=== PATIENT | male | born 1970 | race Caucasian/White ===

== ENCOUNTER 2017-08-23 17:30 | Emergency (ER) | payer SELFPAY ==
[~2017-08-23] VITALS: Ht 182.9 cm; Wt 111.4 kg
[2017-08-23 18:45] LABS: BASOPHILS % (AUTO) 1 % (0-1); EOSINOPHILS # (AUTO) 0.37 x10^3/uL (0-0.4); EOSINOPHILS % (AUTO) 2 % (1-7); LYMPHOCYTES % (AUTO) 15 % (22-44); MD NO; MEAN CORPUSCULAR HGB CONC 33.7 g/dL (33.2-36.2); MEAN PLATELET VOLUME 6.4 fL (7.4-10.4); MONOCYTES # (AUTO) 0.67 x10^3/uL (0.2-0.8); MONOCYTES % (AUTO) 4 % (2-9); NEUTROPHILS # (AUTO) 11.77 x10^3/uL (1.8-6.8); NEUTROPHILS % (AUTO) 78 % (42-75); PLATELET COUNT 404 x10^3/uL (130-400); RED BLOOD COUNT 3.49 x10^6/uL (4.38-5.82); RED CELL DISTRIBUTION WIDTH 15.3 % (9.4-14.8)
[2017-08-23 18:56] LABS: ALANINE AMINOTRANSFERASE 83 U/L (12-78); ALBUMIN 2.9 g/dL (3.4-5.0); ANION GAP 11 mmol/L (5-15); CALCIUM 9.1 mg/dL (8.5-10.1); CHLORIDE 103 mmol/L (98-107); CREATININE 2.35 mg/dL (0.7-1.3)
[2017-08-23 18:58] LABS: ALKALINE PHOSPHATASE 190 U/L (45-117); BILIRUBIN,TOTAL 1.1 mg/dL (0.2-1.0); TOTAL PROTEIN 8.2 g/dL (6.4-8.2)
[2017-08-23] MEDS ORDERED: VANCOMYCIN PER PHARMACY MC PRN (21:00)
[2017-08-23] MEDS ORDERED: VANCOMYCIN 2,000 MG in SODIUM CHLORIDE 0.9% 500 ML IV ONE (21:00)
[2017-08-23 23:57] VITALS: BP 157/104
== END 2017-08-24 00:14 | disposition home or self-care (01) ==
LOC: ED 21:42
DX: L03.114 Cellulitis of left upper limb (principal); Z72.9 Problem related to lifestyle, unspecified; F15.20 Other stimulant dependence, uncomplicated; I10 Essential (primary) hypertension; L02.414 Cutaneous abscess of left upper limb
CPT/HCPCS: 36415; 80053; 85025; 96365; 96366; 99285; J3370; J7040

== ENCOUNTER 2018-04-09 16:26 | Inpatient (IN) | payer MEDICAID ==
[~2018-04-09] VITALS: Ht 182.9 cm; Wt 99.3 kg
[~2018-04-09 16:26] MED LIST: ASPI-515 PO; ATOR40TA78 PO; CARV3.1212 PO; LEVO100T PO; LISI-170 PO
[2018-04-09] MEDS ORDERED: SODIUM CHLORIDE FLUSH 10ML SYR IVF ONE (17:30)
[2018-04-09] MEDS ORDERED: ASPIRIN 81 MG TABLET CHEW PO ONE (17:30)
[2018-04-09 18:15] LABS: BASOPHILS # (AUTO) 0.05 x10^3/uL (0-0.1); BASOPHILS % (AUTO) 1 % (0-1); EOSINOPHILS # (AUTO) 0.05 x10^3/uL (0-0.4); EOSINOPHILS % (AUTO) 1 % (1-7); LYMPHOCYTES # (AUTO) 1.23 x10^3/uL (1-3.4); LYMPHOCYTES % (AUTO) 25 % (22-44); MD NO; MEAN CORPUSCULAR HEMOGLOBIN 32.3 pg (27.5-34.5); MEAN CORPUSCULAR HGB CONC 33.7 g/dL (33.2-36.2); MEAN CORPUSCULAR VOLUME 95.9 fL (81-97); MEAN PLATELET VOLUME 9.4 fL (7.4-10.4); MONOCYTES # (AUTO) 0.26 x10^3/uL (0.2-0.8); MONOCYTES % (AUTO) 5 % (2-9); NEUTROPHILS # (AUTO) 3.38 x10^3/uL (1.8-6.8); NEUTROPHILS % (AUTO) 68 % (42-75); PLATELET COUNT 212 x10^3/uL (130-400); RED BLOOD COUNT 3.62 x10^6/uL (4.38-5.82); RED CELL DISTRIBUTION WIDTH 15.5 % (9.4-14.8)
[2018-04-09 18:23] LABS: ALANINE AMINOTRANSFERASE 89 U/L (12-78); ALBUMIN 4.1 g/dL (3.4-5.0); ANION GAP 9 mmol/L (5-15); CALCIUM 8.8 mg/dL (8.5-10.1); CHLORIDE 105 mmol/L (98-107); CREATININE 1.72 mg/dL (0.7-1.3)
[2018-04-09 18:27] LABS: ALKALINE PHOSPHATASE 82 U/L (45-117); BILIRUBIN,TOTAL 0.5 mg/dL (0.2-1.0); TOTAL PROTEIN 7.6 g/dL (6.4-8.2); TROPONIN I 0.018 ng/mL (0.000-0.045)
[2018-04-09] MEDS ORDERED: ASPIRIN 81 MG TABLET CHEW ONE (18:29)
[2018-04-09] MEDS ORDERED: FUROSEMIDE 40 MG/4 ML ONE (19:59)
[2018-04-09] MEDS ORDERED: FUROSEMIDE 20 MG/2 ML IV ONE (20:00)
[2018-04-09] MEDS ORDERED: POLYETHYLENE GLYCOL 17 GM PACKET PO PRN (20:30)
[2018-04-09] MEDS: FUROSEMIDE 40 MG/4 ML IV SCH (20:30)
[2018-04-09] MEDS ORDERED: morphine SULFATE 10 MG/ML, 1ML IVPush PRN (20:30)
[2018-04-09] MEDS ORDERED: DOCUSATE 100 MG CAPSULE PO PRN (20:30)
[2018-04-09] MEDS ORDERED: LEVOTHYROXINE 100 MCG INJ IVPush ONE (20:30)
[2018-04-09] MEDS ORDERED: ONDANSETRON 2MG/ML, 2ML IVPush PRN (20:30)
[2018-04-09] MEDS ORDERED: ACETAMINOPHEN 325 MG TABLET PO PRN (20:30)
[2018-04-09] MEDS ORDERED: HYDROcodone/APAP 5/325 TABLET PO PRN (20:30)
[2018-04-09 20:43] LABS: FREE T4 (FREE THYROXINE) 0.23 ng/dL (0.76-1.46)
[2018-04-09] MEDS: CARVEDILOL 3.125 MG TABLET PO SCH (22:00)
[2018-04-09] MEDS: HEPARIN 5,000 UNITS/ML, 1ML SQ SCH (22:01)
[2018-04-09] MEDS: ATORVASTATIN 40 MG TABLET PO SCH (22:01)
[2018-04-09] MEDS: NICOTINE 7 MG/24 HR PATCH.TD24 TD SCH (22:01)
[2018-04-09] MEDS: SODIUM CHLORIDE FLUSH 10ML SYR IVF SCH (22:02)
[2018-04-09 22:22] VITALS: BP 131/87
[2018-04-10 02:29] VITALS: BP 129/91
[2018-04-10] MEDS: LEVOTHYROXINE 100 MCG TABLET PO SCH (05:33)
[2018-04-10] MEDS: HEPARIN 5,000 UNITS/ML, 1ML SQ SCH ×3 (05:33→21:33)
[2018-04-10] MEDS: ASPIRIN 81 MG TABLET EC PO SCH (05:34)
[2018-04-10] MEDS: CARVEDILOL 3.125 MG TABLET PO SCH ×2 (05:34→16:50)
[2018-04-10 05:42] VITALS: BP 126/87
[2018-04-10 05:46] LABS: CHLORIDE 105 mmol/L (98-107)
[2018-04-10 05:53] LABS: ANION GAP 7 mmol/L (5-15); CALCIUM 9.1 mg/dL (8.5-10.1); CREATININE 1.51 mg/dL (0.7-1.3)
[2018-04-10] MEDS: SENNA/DOCUSATE TABLET PO SCH (07:34)
[2018-04-10] MEDS: FUROSEMIDE 40 MG/4 ML IV SCH ×2 (07:34→16:50)
[2018-04-10] MEDS: LIOTHYRONINE 5 MCG TABLET PO SCH (07:35)
[2018-04-10] MEDS: SODIUM CHLORIDE FLUSH 10ML SYR IVF SCH ×2 (07:35→20:46)
[2018-04-10] MEDS: LISINOPRIL 20 MG TABLET PO SCH (07:35)
[2018-04-10 07:59] VITALS: BP 126/85
[2018-04-10] MEDS ORDERED: LEVOTHYROXINE 100 MCG TABLET PO SCH (09:00)
[2018-04-10 13:30] VITALS: BP 106/69
[2018-04-10 20:38] VITALS: BP 98/61
[2018-04-10] MEDS: NICOTINE 7 MG/24 HR PATCH.TD24 TD SCH (20:45)
[2018-04-10] MEDS: ATORVASTATIN 40 MG TABLET PO SCH (20:46)
[2018-04-11 00:54] VITALS: BP 111/68
[2018-04-11 05:08] LABS: ANION GAP 9 mmol/L (5-15); CALCIUM 9.4 mg/dL (8.5-10.1); CHLORIDE 101 mmol/L (98-107); CREATININE 1.76 mg/dL (0.7-1.3)
[2018-04-11] MEDS: ASPIRIN 81 MG TABLET EC PO SCH (05:30)
[2018-04-11] MEDS: CARVEDILOL 3.125 MG TABLET PO SCH ×2 (05:30→17:18)
[2018-04-11] MEDS: LEVOTHYROXINE 100 MCG TABLET PO SCH (05:30)
[2018-04-11] MEDS: HEPARIN 5,000 UNITS/ML, 1ML SQ SCH ×3 (05:31→22:32)
[2018-04-11 05:35] VITALS: BP 107/71
[2018-04-11 07:39] VITALS: BP 116/76
[2018-04-11] MEDS: LISINOPRIL 20 MG TABLET PO SCH (08:39)
[2018-04-11] MEDS: FUROSEMIDE 40 MG TABLET PO SCH (08:40)
[2018-04-11] MEDS: SENNA/DOCUSATE TABLET PO SCH (08:40)
[2018-04-11] MEDS: LIOTHYRONINE 5 MCG TABLET PO SCH (08:41)
[2018-04-11] MEDS: SODIUM CHLORIDE FLUSH 10ML SYR IVF SCH ×2 (08:42→20:04)
[2018-04-11 13:02] VITALS: BP 114/82
[2018-04-11 20:01] VITALS: BP 104/70
[2018-04-11] MEDS: NICOTINE 7 MG/24 HR PATCH.TD24 TD SCH (20:03)
[2018-04-11] MEDS: ATORVASTATIN 40 MG TABLET PO SCH (20:09)
[2018-04-12 02:17] VITALS: BP 99/67
[2018-04-12] MEDS: ASPIRIN 81 MG TABLET EC PO SCH (05:52)
[2018-04-12] MEDS: LEVOTHYROXINE 100 MCG TABLET PO SCH (05:52)
[2018-04-12] MEDS: HEPARIN 5,000 UNITS/ML, 1ML SQ SCH ×3 (05:53→21:05)
[2018-04-12 05:54] VITALS: BP 117/78
[2018-04-12] MEDS: CARVEDILOL 3.125 MG TABLET PO SCH ×2 (05:55→17:35)
[2018-04-12 06:03] LABS: CHLORIDE 102 mmol/L (98-107)
[2018-04-12 06:13] LABS: ANION GAP 11 mmol/L (5-15); CALCIUM 9.3 mg/dL (8.5-10.1); CREATININE 1.44 mg/dL (0.7-1.3)
[2018-04-12 08:01] VITALS: BP 99/65
[2018-04-12] MEDS: SENNA/DOCUSATE TABLET PO SCH ×2 (09:00→09:24)
[2018-04-12] MEDS: LIOTHYRONINE 5 MCG TABLET PO SCH (09:24)
[2018-04-12] MEDS: FUROSEMIDE 40 MG TABLET PO SCH (09:25)
[2018-04-12] MEDS: LISINOPRIL 20 MG TABLET PO SCH (09:25)
[2018-04-12] MEDS: SODIUM CHLORIDE FLUSH 10ML SYR IVF SCH ×2 (09:25→21:06)
[2018-04-12 13:06] VITALS: BP 117/80
[2018-04-12 17:34] VITALS: BP 114/62
[2018-04-12 19:54] VITALS: BP 98/64
[2018-04-12] MEDS: NICOTINE 7 MG/24 HR PATCH.TD24 TD SCH (20:30)
[2018-04-12] MEDS: ATORVASTATIN 40 MG TABLET PO SCH (21:05)
[2018-04-13 01:17] VITALS: BP 143/67
[2018-04-13 05:43] LABS: CHLORIDE 99 mmol/L (98-107)
[2018-04-13] MEDS ORDERED: LEVOTHYROXINE 100 MCG INJ IVPush SCH ×2 (06:00→09:00)
[2018-04-13] MEDS: CARVEDILOL 3.125 MG TABLET PO SCH (06:13)
[2018-04-13] MEDS: ASPIRIN 81 MG TABLET EC PO SCH (06:13)
[2018-04-13] MEDS: HEPARIN 5,000 UNITS/ML, 1ML SQ SCH ×2 (06:14→14:00)
[2018-04-13 06:17] LABS: ANION GAP 5 mmol/L (5-15); CALCIUM 9.4 mg/dL (8.5-10.1); CREATININE 1.41 mg/dL (0.7-1.3)
[2018-04-13 07:27] VITALS: BP 107/66
[2018-04-13] MEDS: SODIUM CHLORIDE FLUSH 10ML SYR IVF SCH (08:08)
[2018-04-13] MEDS: LISINOPRIL 20 MG TABLET PO SCH (08:09)
[2018-04-13] MEDS: FUROSEMIDE 40 MG TABLET PO SCH (08:09)
[2018-04-13] MEDS: LIOTHYRONINE 5 MCG TABLET PO SCH (08:10)
[2018-04-13] MEDS: SENNA/DOCUSATE TABLET PO SCH (08:10)
[2018-04-13] MEDS ORDERED: LEVO100T PO (09:51)
[2018-04-13] MEDS ORDERED: ATOR40TA78 PO (09:51)
[2018-04-13] MEDS ORDERED: CARV3.1212 PO (09:51)
[2018-04-13] MEDS ORDERED: LISI-170 PO (09:51)
[2018-04-13] MEDS ORDERED: ASPI-515 PO (09:51)
[2018-04-13] MEDS ORDERED: SPIR25TA PO (12:48)
[2018-04-13] MEDS ORDERED: FURO-93 PO (12:48)
[2018-04-13 13:49] VITALS: BP 108/72
== END 2018-04-13 16:45 | disposition home or self-care (01) | DRG 682 ==
LOC: ED 18:28 → SUATTDRO 19:43 → EDIP 19:44 → 5SO 20:45
PROVIDERS: ADMIT Family Medicine; ATTEND Internal Medicine
DX: N17.0 Acute kidney failure with tubular necrosis (principal); I50.23 Acute on chronic systolic (congestive) heart failure; J96.01 Acute respiratory failure with hypoxia; I13.0 Hypertensive heart and chronic kidney disease with heart failure and stage 1 through stage 4 chronic kidney disease, or unspecified chronic kidney disease; I31.3 Pericardial effusion (noninflammatory); I42.9 Cardiomyopathy, unspecified; E03.4 Atrophy of thyroid (acquired); E78.5 Hyperlipidemia, unspecified; F17.210 Nicotine dependence, cigarettes, uncomplicated; G47.33 Obstructive sleep apnea (adult) (pediatric); I34.0 Nonrheumatic mitral (valve) insufficiency; N18.9 Chronic kidney disease, unspecified; Z79.899 Other long term (current) drug therapy; Z82.49 Family history of ischemic heart disease and other diseases of the circulatory system; Z91.14 Patient's other noncompliance with medication regimen
CPT/HCPCS: 36415; 71046; 80048; 80053; 82040; 83605; 83735; 83880; 84439; 84443; 84481; 84484; 85025; 87040; 90656; 93005; 93306; 96374; G0378; J1644; J1940

== ENCOUNTER 2018-10-24 11:26 | Inpatient (IN) | payer MEDICAID ==
[~2018-10-24] VITALS: Ht 182.9 cm; Wt 96.9 kg
[~2018-10-24 11:26] MED LIST changes: +FURO-93 PO; +SPIR25TA PO
--- NOTE | 2018-10-24 12:08 | NUR ---
Pt to rm 2 from [facility]
[2018-10-24] MEDS ORDERED: ASPIRIN 81 MG TABLET CHEW ONE (12:15)
--- NOTE | 2018-10-24 12:20 | NUR ---
Pt to ER for 1 mo of chest tightness, dyspnea w/ exertion & inablility to sleep due to orthopnea. EKG done in triage. Cardiac, NIBP & SPO2 monitors placed. Hx CHF w/out access to diuretics x 1mo. Is also supposed to be on oxygen & using CPAP at night but can't due to sleeping in RV.
[2018-10-24] MEDS ORDERED: ASPIRIN 81 MG TABLET CHEW PO ONE ×2 (12:30→14:00)
[2018-10-24] MEDS ORDERED: FUROSEMIDE 40 MG TABLET PO ONE (12:30)
[2018-10-24 13:03] LABS: INTERNATIONAL NORMALIZED RATIO 1.22 (0.93-1.1); PROTHROMBIN TIME 12.7 Seconds (9.6-11.5)
--- NOTE | 2018-10-24 13:14 | NUR ---
IV est using US guided technique by AC Lambert. Several attempts made by this RN & pt needed lab redraw due to first set being clotted. Pt sanjiv. well. Aware of impending admit status.
[2018-10-24 13:20] LABS: BASOPHILS # (AUTO) 0.04 x10^3/uL (0-0.1); BASOPHILS % (AUTO) 0 % (0-1); EOSINOPHILS # (AUTO) 0.02 x10^3/uL (0-0.4); EOSINOPHILS % (AUTO) 0 % (1-7); LYMPHOCYTES # (AUTO) 1.34 x10^3/uL (1-3.4); LYMPHOCYTES % (AUTO) 14 % (22-44); MD NO; MEAN CORPUSCULAR HEMOGLOBIN 32.6 pg (27.5-34.5); MEAN CORPUSCULAR HGB CONC 33.8 g/dL (33.2-36.2); MEAN CORPUSCULAR VOLUME 96.7 fL (81-97); MEAN PLATELET VOLUME 9.1 fL (7.4-10.4); MONOCYTES # (AUTO) 0.79 x10^3/uL (0.2-0.8); MONOCYTES % (AUTO) 8 % (2-9); NEUTROPHILS # (AUTO) 7.27 x10^3/uL (1.8-6.8); NEUTROPHILS % (AUTO) 77 % (42-75); PLATELET COUNT 226 x10^3/uL (130-400); RED BLOOD COUNT 3.43 x10^6/uL (4.38-5.82)
--- NOTE | 2018-10-24 13:23 | NUR ---
RECEIVED BEDSIDE REPORT FROM AC FRAZIER. ASSUMING PT CARE AT THIS TIME.
[2018-10-24 13:31] LABS: ALBUMIN 4.2 g/dL (3.4-5.0); ANION GAP 10 mmol/L (5-15); CALCIUM 8.9 mg/dL (8.5-10.1); CHLORIDE 108 mmol/L (98-107)
--- NOTE | 2018-10-24 13:31 | NUR ---
pt resting on gurney. no acute distress noted. pt states "I DO FEEL A LITTLE BETTER." NO NEEDS REQUESTED AT THIS TIME.
[2018-10-24 13:35] LABS: FREE T4 (FREE THYROXINE) 1.56 ng/dL (0.76-1.46); TROPONIN I 0.082 ng/mL (0.000-0.045)
[2018-10-24] MEDS ORDERED: FUROSEMIDE 40 MG/4 ML ONE (13:54)
[2018-10-24] MEDS ORDERED: FUROSEMIDE 40 MG/4 ML IV ONE (14:00)
[2018-10-24] MEDS ORDERED: ONDANSETRON 2MG/ML, 2ML IVPush PRN (14:30)
[2018-10-24] MEDS ORDERED: ONDANSETRON ODT 4 MG PO PRN (14:30)
[2018-10-24] MEDS ORDERED: ACETAMINOPHEN 325 MG TABLET PO PRN (14:30)
--- NOTE | 2018-10-24 14:39 | NUR ---
PT RESTING ON GURNEY. NO ACUTE DISTRESS NOTED. PT HAS URINAL BEDSIDE. HOSPITALIST BEDSIDE. NO NEEDS REQUESTED AT THIS TIME.
--- NOTE | 2018-10-24 15:14 | NUR ---
PT WITH [facility]. DENIED BY YRN AT [facility] AND [facility]
[2018-10-24 15:16] LABS: TROPONIN I 0.092 ng/mL (0.000-0.045)
--- NOTE | 2018-10-24 15:26 | NUR ---
REPORT TO AC ZAIDI. ALL QUESTIONS ANSWERED
--- NOTE | 2018-10-24 15:49 | NUR ---
PT TRANSFERRED TO FLOOR. PT LEFT WITH ALL PERSONAL BELONGINGS.
[2018-10-24] MEDS: NICOTINE 14MG/24 HR PATCH.TD24 TD SCH (16:16)
[2018-10-24] MEDS: HEPARIN 5,000 UNITS/ML, 1ML SQ SCH (16:16)
[2018-10-24] MEDS ORDERED: LITH300T30 PO (16:46)
[2018-10-24] MEDS ORDERED: VENL75CA6 PO (16:46)
[2018-10-24] MEDS ORDERED: PRAZ2CAP2 PO (16:46)
[2018-10-24] MEDS ORDERED: LEVO150T5 PO (16:46)
[2018-10-24 17:14] VITALS: BP 114/77
[2018-10-24] MEDS ORDERED: ALBUTEROL/IPRATROPIUM 2.5MG/0.5MG, 3 ML ONE (17:30)
[2018-10-24] MEDS ORDERED: ALBUTEROL/IPRATROPIUM 2.5MG/0.5MG, 3 ML NPPB PRN (18:00)
[2018-10-24] MEDS: CARVEDILOL 3.125 MG TABLET PO SCH (18:01)
[2018-10-24 18:54] VITALS: BP 105/72
[2018-10-24 20:32] LABS: TROPONIN I 0.079 ng/mL (0.000-0.045)
[2018-10-24] MEDS: ATORVASTATIN 40 MG TABLET PO SCH (21:39)
[2018-10-24] MEDS: LITHIUM CARBONATE 300 MG TABLET.ER PO SCH (21:39)
[2018-10-24] MEDS: PRAZOSIN 2 MG CAPSULE PO SCH (21:40)
[2018-10-25] VITALS (12 sets, daily range): BP systolic 80–112; BP diastolic 49–77
[2018-10-25] MEDS: HEPARIN 5,000 UNITS/ML, 1ML SQ SCH ×3 (00:57→16:40)
[2018-10-25 02:51] LABS: BASOPHILS # (AUTO) 0.07 x10^3/uL (0-0.1); BASOPHILS % (AUTO) 1 % (0-1); EOSINOPHILS # (AUTO) 0.09 x10^3/uL (0-0.4); EOSINOPHILS % (AUTO) 1 % (1-7); LYMPHOCYTES # (AUTO) 1.46 x10^3/uL (1-3.4); LYMPHOCYTES % (AUTO) 18 % (22-44); MD NO; MEAN CORPUSCULAR HEMOGLOBIN 32.5 pg (27.5-34.5); MEAN CORPUSCULAR HGB CONC 33.5 g/dL (33.2-36.2); MEAN CORPUSCULAR VOLUME 96.9 fL (81-97); MEAN PLATELET VOLUME 8.9 fL (7.4-10.4); MONOCYTES # (AUTO) 0.69 x10^3/uL (0.2-0.8); MONOCYTES % (AUTO) 8 % (2-9); NEUTROPHILS # (AUTO) 6.03 x10^3/uL (1.8-6.8); NEUTROPHILS % (AUTO) 72 % (42-75); PLATELET COUNT 183 x10^3/uL (130-400); RED CELL DISTRIBUTION WIDTH 16.1 % (9.4-14.8)
[2018-10-25 03:04] LABS: % IRON SATURATION 14 % (20-55); ANION GAP 8 mmol/L (5-15); CALCIUM 8.2 mg/dL (8.5-10.1); CHLORIDE 109 mmol/L (98-107); CREATININE 1.37 mg/dL (0.7-1.3); IRON LEVEL 50 mcg/dL (65-175); TOTAL IRON BINDING CAPACITY 348 mcg/dL (250-450)
[2018-10-25] MEDS: ASPIRIN 81 MG TABLET EC PO SCH (05:31)
[2018-10-25] MEDS: LEVOTHYROXINE 100 MCG TABLET PO SCH (05:31)
[2018-10-25] MEDS ORDERED: FERROUS SULFATE 325 MG TABLET PO SCH (07:30)
[2018-10-25] MEDS: SPIRONOLACTONE 25 MG TABLET PO SCH (08:22)
[2018-10-25] MEDS: CARVEDILOL 3.125 MG TABLET PO SCH (08:22)
[2018-10-25] MEDS: VENLAFAXINE 75 MG CAP ER PO SCH (08:22)
[2018-10-25] MEDS ORDERED: FUROSEMIDE 20 MG TABLET PO SCH (09:00)
[2018-10-25] MEDS ORDERED: LISINOPRIL 20 MG TABLET PO SCH (09:00)
[2018-10-25 09:47] LABS: O2 FLOW 5 L/min
[2018-10-25] MEDS: NICOTINE 14MG/24 HR PATCH.TD24 TD SCH (15:08)
[2018-10-25] MEDS: CARVEDILOL 6.25 MG TABLET PO SCH (17:41)
[2018-10-25] MEDS: ATORVASTATIN 40 MG TABLET PO SCH (21:46)
[2018-10-25] MEDS: LITHIUM CARBONATE 300 MG TABLET.ER PO SCH (21:46)
[2018-10-25] MEDS: PRAZOSIN 2 MG CAPSULE PO SCH (21:47)
[2018-10-26] MEDS: HEPARIN 5,000 UNITS/ML, 1ML SQ SCH ×2 (01:01→09:04)
[2018-10-26 01:04] VITALS: BP 94/59
[2018-10-26 05:20] VITALS: BP 106/73
[2018-10-26] MEDS: CARVEDILOL 6.25 MG TABLET PO SCH (05:27)
[2018-10-26] MEDS: ASPIRIN 81 MG TABLET EC PO SCH (05:27)
[2018-10-26] MEDS: LEVOTHYROXINE 100 MCG TABLET PO SCH (05:27)
[2018-10-26 06:21] LABS: CHLORIDE 107 mmol/L (98-107)
[2018-10-26 06:31] LABS: ANION GAP 5 mmol/L (5-15); CALCIUM 8.6 mg/dL (8.5-10.1); CREATININE 1.11 mg/dL (0.7-1.3)
[2018-10-26 07:29] VITALS: BP 87/53
[2018-10-26] MEDS ORDERED: LISINOPRIL 10 MG TABLET PO SCH (09:00)
[2018-10-26] MEDS: SPIRONOLACTONE 25 MG TABLET PO SCH (09:03)
[2018-10-26] MEDS: VENLAFAXINE 75 MG CAP ER PO SCH (09:04)
[2018-10-26] MEDS: NICOTINE 14MG/24 HR PATCH.TD24 TD SCH (14:30)
[2018-10-26] MEDS ORDERED: FERR-51 PO (14:51)
[2018-10-26] MEDS ORDERED: LISI-167 PO (14:51)
[2018-10-26] MEDS ORDERED: CARV6.2512 PO (14:51)
[2018-10-26] MEDS ORDERED: LEVO100T PO (14:57)
== END 2018-10-26 16:30 | disposition home or self-care (01) | DRG 291 ==
LOC: ED 13:12 → EDIP 14:19 → 5SO 15:43
PROVIDERS: ADMIT Internal Medicine; ATTEND Internal Medicine
DX: I13.0 Hypertensive heart and chronic kidney disease with heart failure and stage 1 through stage 4 chronic kidney disease, or unspecified chronic kidney disease (principal); J96.21 Acute and chronic respiratory failure with hypoxia; I50.23 Acute on chronic systolic (congestive) heart failure; N17.9 Acute kidney failure, unspecified; D50.9 Iron deficiency anemia, unspecified; E03.9 Hypothyroidism, unspecified; F17.210 Nicotine dependence, cigarettes, uncomplicated; G47.10 Hypersomnia, unspecified; G47.33 Obstructive sleep apnea (adult) (pediatric); N18.2 Chronic kidney disease, stage 2 (mild); F15.10 Other stimulant abuse, uncomplicated; Z63.8 Other specified problems related to primary support group; Z79.82 Long term (current) use of aspirin; Z79.899 Other long term (current) drug therapy; Z91.14 Patient's other noncompliance with medication regimen; Z91.19 Patient's noncompliance with other medical treatment and regimen
CPT/HCPCS: 36415; 36600; 99285; J7620; 71045; 80048; 80178; 82040; 82803; 83540; 83550; 83735; 83880; 84439; 84443; 84484; 85025; 85610; 85730; 93005; 94640; 96374; G0378; J1644; J1940

== ENCOUNTER 2020-01-27 15:28 | Inpatient (IN) | payer MEDICAID ==
[~2020-01-27] VITALS: Ht 182.9 cm; Wt 103.2 kg
[~2020-01-27 15:28] MED LIST changes: +CARV6.2512 PO; +DIGO125T85 PO; +FERR-51 PO; +FURO40TA6 PO; +LEVO125T PO; +LEVO150T5 PO; +LISI-167 PO; +LITH300T30 PO; +PRAZ2CAP2 PO; +VENL75CA6 PO
[2020-01-27] MEDS ORDERED: SODIUM CHLORIDE FLUSH 10ML SYR IVF ONE (16:00)
[2020-01-27] MEDS ORDERED: HYDROmorphone 1 MG/ML, 1ML INJ IM STA (16:16)
[2020-01-27 16:41] LABS: ALANINE AMINOTRANSFERASE 20 U/L (12-78); ALBUMIN 2.9 g/dL (3.4-5.0); ANION GAP 9 mmol/L (5-15); CALCIUM 8.6 mg/dL (8.5-10.1); CHLORIDE 102 mmol/L (98-107); CREATININE 1.12 mg/dL (0.7-1.3)
[2020-01-27 16:49] LABS: ALKALINE PHOSPHATASE 99 U/L (45-117); BILIRUBIN,TOTAL 1.3 mg/dL (0.2-1.0); TOTAL PROTEIN 7.9 g/dL (6.4-8.2); TROPONIN I < 0.015 ng/mL (0.000-0.045)
--- NOTE | 2020-01-27 17:15 | NUR ---
PT TO CT AT THIS TIME
[2020-01-27] MEDS ORDERED: OMNIPAQUE 350 MG/ML, 150 ML BOTTLE ONE (17:17)
[2020-01-27 17:19] LABS: MEAN CORPUSCULAR HEMOGLOBIN 31.7 pg (27.5-34.5); MEAN CORPUSCULAR HGB CONC 33.6 g/dL (33.2-36.2); MEAN CORPUSCULAR VOLUME 94.5 fL (81-97); MEAN PLATELET VOLUME 8.1 fL (7.4-10.4); PLATELET COUNT 227 x10^3/uL (130-400); RED BLOOD COUNT 4.99 x10^6/uL (4.38-5.82); RED CELL DISTRIBUTION WIDTH 13.8 % (9.4-14.8)
[2020-01-27 17:27] LABS: BASOPHILS # (AUTO) 0.02 x10^3/uL (0-0.1); BASOPHILS % (AUTO) 0 % (0-1); EOSINOPHILS % (AUTO) 1 % (1-7); LYMPHOCYTES # (AUTO) 1.68 x10^3/uL (1-3.4); LYMPHOCYTES % (AUTO) 11 % (22-44); MD SCAN; MONOCYTES # (AUTO) 1.63 x10^3/uL (0.2-0.8); MONOCYTES % (AUTO) 10 % (2-9); NEUTROPHILS # (AUTO) 12.62 x10^3/uL (1.8-6.8); NEUTROPHILS % (AUTO) 79 % (42-75)
--- NOTE | 2020-01-27 17:27 | NUR ---
REPORT CALLED TO THE FLOOR
[2020-01-27] MEDS ORDERED: VANCOMYCIN PER PHARMACY MC ONE (17:30)
[2020-01-27] MEDS ORDERED: PIPERACILLIN/TAZO/PMX 3.375GM 50 ML IVPB ONE (17:30)
[2020-01-27] MEDS ORDERED: VANCOMYCIN 2,500 MG in SODIUM CHLORIDE 0.9% 500 ML IV SCH ×2 (17:30→18:30)
[2020-01-27] MEDS ORDERED: SODIUM CHLORIDE 0.9% 1,000ML IVBOLUS ONE (17:30)
[2020-01-27] MEDS ORDERED: HEPARIN 5,000 UNITS/ML, 1ML IV ONE (18:30)
[2020-01-27] MEDS ORDERED: SODIUM CHLORIDE FLUSH 10ML SYR IVF PRN (18:30)
[2020-01-27] MEDS ORDERED: VANCOMYCIN PER PHARMACY MC PRN ×2 (18:30→19:00)
[2020-01-27] MEDS ORDERED: PIPERACILLIN/TAZO/PMX 3.375GM 50 ML IV SCH (18:30)
--- NOTE | 2020-01-27 18:56 | NUR ---
REPORT RECEIVED FROM AC GALLEGOS. PLAN OF CARE DISCUSSED. IVF RUNNING, VANCOMYCIN RUNNING AT THIS TIME. MONITORING IN PLACE, CALL LIGHT IN REACH
[2020-01-27] MEDS ORDERED: PHARMACY MAY ADJ FOR RENAL FX MC PRN (19:00)
[2020-01-27] MEDS ORDERED: ACETAMINOPHEN 325 MG TABLET PO PRN (19:00)
[2020-01-27] MEDS ORDERED: HYDROcodone/APAP 5/325 TABLET PO PRN (19:00)
[2020-01-27 19:03] LABS: HCT (SEDRATE) 47.2 % (39.2-51.8)
[2020-01-27] MEDS ORDERED: PHARMACOKINETIC CONSULTATION MC ONE (19:30)
[2020-01-27] MEDS ORDERED: PHARMACOKINETIC MONITORING MC PRN (19:30)
--- NOTE | 2020-01-27 20:19 | NUR ---
REPORT GIVEN TO AC GEIGER. PLAN OF CARE DISCUSSED. VANCOMYCIN INFUSION COMPLETE PRIOR TO TRANSPORT
[2020-01-27 20:56] VITALS: BP 127/80
[2020-01-27] MEDS: ATORVASTATIN 40 MG TABLET PO SCH (21:01)
[2020-01-27] MEDS: NICOTINE 7 MG/24 HR PATCH.TD24 TD SCH (21:01)
[2020-01-27] MEDS: FUROSEMIDE 40 MG TABLET PO SCH (21:01)
[2020-01-27] MEDS: HEPARIN 25,000 UNITS/250ML PMX 250 ML IV PRN (21:05)
[2020-01-27] MEDS: PIPERACILLIN/TAZO/PMX 4.5GM 100 ML IVPB SCH (21:51)
[2020-01-27] MEDS: PRAZOSIN 2 MG CAPSULE PO SCH (21:52)
[2020-01-27 22:36] LABS: AMPHETAMINE SCREEN, URINE Positive (Negative); BARBITURATE SCREEN, URINE Negative (Negative); BENZODIAZEPINE SCREEN, URINE Negative (Negative); CANNABINOID SCREEN, URINE Positive (Negative); COCAINE SCREEN, URINE Negative (Negative); METHADONE SCREEN, URINE Negative (Negative); OPIATE SCREEN, URINE Negative (Negative)
[2020-01-28 01:00] VITALS: BP 108/71
[2020-01-28] MEDS: PIPERACILLIN/TAZO/PMX 4.5GM 100 ML IVPB SCH ×4 (03:32→20:55)
[2020-01-28 03:35] LABS: BASOPHILS # (AUTO) 0.07 x10^3/uL (0-0.1); BASOPHILS % (AUTO) 1 % (0-1); EOSINOPHILS # (AUTO) 0.18 x10^3/uL (0-0.4); EOSINOPHILS % (AUTO) 1 % (1-7); LYMPHOCYTES # (AUTO) 1.63 x10^3/uL (1-3.4); LYMPHOCYTES % (AUTO) 13 % (22-44); MD NO; MEAN CORPUSCULAR HEMOGLOBIN 31.8 pg (27.5-34.5); MEAN CORPUSCULAR HGB CONC 33.8 g/dL (33.2-36.2); MEAN PLATELET VOLUME 7.9 fL (7.4-10.4); MONOCYTES # (AUTO) 1.16 x10^3/uL (0.2-0.8); MONOCYTES % (AUTO) 9 % (2-9); NEUTROPHILS # (AUTO) 9.67 x10^3/uL (1.8-6.8); NEUTROPHILS % (AUTO) 76 % (42-75); PLATELET COUNT 183 x10^3/uL (130-400); RED CELL DISTRIBUTION WIDTH 13.8 % (9.4-14.8)
[2020-01-28 03:38] LABS: ANION GAP 8 mmol/L (5-15); CALCIUM 8.1 mg/dL (8.5-10.1); CHLORIDE 103 mmol/L (98-107); CREATININE 1.15 mg/dL (0.7-1.3)
[2020-01-28] MEDS: HEPARIN 5,000 UNITS/ML, 1ML IV PRN ×3 (04:09→18:31)
[2020-01-28 05:50] VITALS: BP 112/69
[2020-01-28] MEDS: LEVOTHYROXINE 125 MCG TABLET PO SCH (05:52)
[2020-01-28] MEDS: CARVEDILOL 6.25 MG TABLET PO SCH ×2 (05:52→17:17)
[2020-01-28] MEDS: VANCOMYCIN 2,000 MG in SODIUM CHLORIDE 0.9% 500 ML IV SCH ×2 (05:52→17:17)
[2020-01-28 06:30] VITALS: BP 109/70
[2020-01-28] MEDS: DIGOXIN 0.125 MG TABLET PO SCH (08:23)
[2020-01-28] MEDS: SENNA/DOCUSATE TABLET PO SCH (08:23)
[2020-01-28] MEDS: LISINOPRIL 10 MG TABLET PO SCH (08:23)
[2020-01-28] MEDS: FERROUS SULFATE 325 MG TABLET PO SCH (08:23)
[2020-01-28] MEDS: FUROSEMIDE 40 MG TABLET PO SCH ×2 (08:24→20:56)
[2020-01-28] MEDS ORDERED: SPIRONOLACTONE 25 MG TABLET PO SCH (09:00)
[2020-01-28 15:25] VITALS: BP 92/62
[2020-01-28] MEDS: HEPARIN 25,000 UNITS/250ML PMX 250 ML IV PRN (16:37)
[2020-01-28 19:06] VITALS: BP 96/65
[2020-01-28] MEDS: NICOTINE 7 MG/24 HR PATCH.TD24 TD SCH (20:55)
[2020-01-28] MEDS: ATORVASTATIN 40 MG TABLET PO SCH (20:56)
[2020-01-28] MEDS: PRAZOSIN 2 MG CAPSULE PO SCH (20:56)
[2020-01-29] MEDS: HEPARIN 5,000 UNITS/ML, 1ML IV PRN ×3 (00:21→22:33)
[2020-01-29 02:00] VITALS: BP 94/62
[2020-01-29] MEDS: PIPERACILLIN/TAZO/PMX 4.5GM 100 ML IVPB SCH ×4 (02:58→19:54)
[2020-01-29] MEDS: VANCOMYCIN 2,000 MG in SODIUM CHLORIDE 0.9% 500 ML IV SCH ×2 (04:58→18:03)
[2020-01-29] MEDS: LEVOTHYROXINE 125 MCG TABLET PO SCH (05:57)
[2020-01-29] MEDS: CARVEDILOL 6.25 MG TABLET PO SCH ×2 (05:57→17:24)
[2020-01-29 06:27] VITALS: BP 109/66
[2020-01-29] MEDS: HEPARIN 25,000 UNITS/250ML PMX 250 ML IV PRN ×2 (07:08→22:36)
[2020-01-29 07:39] LABS: BASOPHILS # (AUTO) 0.09 x10^3/uL (0-0.1); BASOPHILS % (AUTO) 1 % (0-1); EOSINOPHILS # (AUTO) 0.29 x10^3/uL (0-0.4); EOSINOPHILS % (AUTO) 3 % (1-7); LYMPHOCYTES # (AUTO) 1.47 x10^3/uL (1-3.4); LYMPHOCYTES % (AUTO) 13 % (22-44); MD NO; MEAN CORPUSCULAR HEMOGLOBIN 31.3 pg (27.5-34.5); MEAN CORPUSCULAR VOLUME 94.7 fL (81-97); MEAN PLATELET VOLUME 7.7 fL (7.4-10.4); MONOCYTES # (AUTO) 1.12 x10^3/uL (0.2-0.8); MONOCYTES % (AUTO) 10 % (2-9); NEUTROPHILS # (AUTO) 8.65 x10^3/uL (1.8-6.8); NEUTROPHILS % (AUTO) 74 % (42-75); PLATELET COUNT 219 x10^3/uL (130-400); RED BLOOD COUNT 3.95 x10^6/uL (4.38-5.82); RED CELL DISTRIBUTION WIDTH 13.5 % (9.4-14.8)
[2020-01-29 07:44] LABS: ANION GAP 8 mmol/L (5-15); CALCIUM 8.1 mg/dL (8.5-10.1); CHLORIDE 104 mmol/L (98-107)
[2020-01-29 07:48] LABS: CREATININE 1.17 mg/dL (0.7-1.3); VANCOMYCIN,TROUGH 45.3 mcg/mL (5.0-10.0)
[2020-01-29] MEDS: DIGOXIN 0.125 MG TABLET PO SCH (08:28)
[2020-01-29] MEDS: SENNA/DOCUSATE TABLET PO SCH (08:28)
[2020-01-29] MEDS: FERROUS SULFATE 325 MG TABLET PO SCH (08:28)
[2020-01-29] MEDS: LISINOPRIL 10 MG TABLET PO SCH (08:28)
[2020-01-29] MEDS ORDERED: POTASSIUM CHLORIDE 20 MEQ TAB.ER.PRT PO ONE (11:00)
[2020-01-29 12:02] VITALS: BP 127/72
[2020-01-29] MEDS: NICOTINE 7 MG/24 HR PATCH.TD24 TD SCH (19:53)
[2020-01-29] MEDS: ATORVASTATIN 40 MG TABLET PO SCH (19:54)
[2020-01-29] MEDS: PRAZOSIN 2 MG CAPSULE PO SCH (19:54)
[2020-01-29 20:00] VITALS: BP 124/82
[2020-01-30 01:28] VITALS: BP 144/83
[2020-01-30] MEDS: PIPERACILLIN/TAZO/PMX 4.5GM 100 ML IVPB SCH (03:00)
[2020-01-30] MEDS: VANCOMYCIN 2,000 MG in SODIUM CHLORIDE 0.9% 500 ML IV SCH ×2 (05:00→16:15)
[2020-01-30 05:42] LABS: ANION GAP 6 mmol/L (5-15); CALCIUM 8.7 mg/dL (8.5-10.1); CHLORIDE 108 mmol/L (98-107)
[2020-01-30 05:44] LABS: CREATININE 0.82 mg/dL (0.7-1.3)
[2020-01-30 05:46] LABS: BASOPHILS # (AUTO) 0.08 x10^3/uL (0-0.1); BASOPHILS % (AUTO) 1 % (0-1); EOSINOPHILS # (AUTO) 0.33 x10^3/uL (0-0.4); EOSINOPHILS % (AUTO) 3 % (1-7); LYMPHOCYTES # (AUTO) 1.67 x10^3/uL (1-3.4); LYMPHOCYTES % (AUTO) 15 % (22-44); MD NO; MEAN CORPUSCULAR HEMOGLOBIN 31.5 pg (27.5-34.5); MEAN CORPUSCULAR HGB CONC 33.4 g/dL (33.2-36.2); MEAN CORPUSCULAR VOLUME 94.6 fL (81-97); MEAN PLATELET VOLUME 7.7 fL (7.4-10.4); MONOCYTES # (AUTO) 1.06 x10^3/uL (0.2-0.8); MONOCYTES % (AUTO) 10 % (2-9); NEUTROPHILS # (AUTO) 8.03 x10^3/uL (1.8-6.8); NEUTROPHILS % (AUTO) 72 % (42-75); PLATELET COUNT 263 x10^3/uL (130-400); RED BLOOD COUNT 4.12 x10^6/uL (4.38-5.82); RED CELL DISTRIBUTION WIDTH 13.7 % (9.4-14.8)
[2020-01-30] MEDS: CARVEDILOL 6.25 MG TABLET PO SCH ×2 (05:48→17:14)
[2020-01-30] MEDS: LEVOTHYROXINE 125 MCG TABLET PO SCH (05:49)
[2020-01-30 07:39] VITALS: BP 134/85
[2020-01-30] MEDS: LISINOPRIL 10 MG TABLET PO SCH (07:45)
[2020-01-30] MEDS: SENNA/DOCUSATE TABLET PO SCH (07:45)
[2020-01-30] MEDS: FERROUS SULFATE 325 MG TABLET PO SCH (07:45)
[2020-01-30] MEDS: DIGOXIN 0.125 MG TABLET PO SCH (07:45)
[2020-01-30] MEDS: AMPICILLIN/SULBACTAM 3 GM in SODIUM CHLORIDE 0.9% 100 ML IV SCH ×3 (10:09→22:38)
[2020-01-30] MEDS: HEPARIN 25,000 UNITS/250ML PMX 250 ML IV PRN (10:12)
[2020-01-30 14:01] VITALS: BP 149/80
[2020-01-30] MEDS ORDERED: APIXABAN 5 MG TABLET PO ONE (16:14)
[2020-01-30 18:52] VITALS: BP 157/77
[2020-01-30] MEDS: ATORVASTATIN 40 MG TABLET PO SCH (20:27)
[2020-01-30] MEDS: PRAZOSIN 2 MG CAPSULE PO SCH (20:27)
[2020-01-30] MEDS: NICOTINE 7 MG/24 HR PATCH.TD24 TD SCH (20:27)
[2020-01-31 04:30] VITALS: BP 127/83
[2020-01-31] MEDS: AMPICILLIN/SULBACTAM 3 GM in SODIUM CHLORIDE 0.9% 100 ML IV SCH (04:37)
[2020-01-31] MEDS ORDERED: APIXABAN 5 MG TABLET PO SCH (06:00)
[2020-01-31] MEDS: CARVEDILOL 6.25 MG TABLET PO SCH (06:23)
[2020-01-31] MEDS: LEVOTHYROXINE 125 MCG TABLET PO SCH (06:23)
[2020-01-31] MEDS: VANCOMYCIN 2,000 MG in SODIUM CHLORIDE 0.9% 500 ML IV SCH (06:24)
[2020-01-31 06:47] VITALS: BP 127/81
[2020-01-31] MEDS: DIGOXIN 0.125 MG TABLET PO SCH (07:53)
[2020-01-31] MEDS: FERROUS SULFATE 325 MG TABLET PO SCH (07:53)
[2020-01-31] MEDS: LISINOPRIL 10 MG TABLET PO SCH (07:54)
[2020-01-31] MEDS: SENNA/DOCUSATE TABLET PO SCH (07:54)
[2020-02-06] MEDS ORDERED: APIXABAN 5 MG TABLET PO SCH (18:00)
== END 2020-01-31 10:04 | disposition left against medical advice (07) | DRG 872 ==
LOC: ED 16:02 → EDIP 18:16 → 4WST 20:30
PROVIDERS: ADMIT Family Medicine; ATTEND Hospitalist
PROC: 02HV33Z Insertion of Infusion Device into Superior Vena Cava, Percutaneous Approach (ICD-10-PCS; principal; 2020-01-30)
PROC: B518ZZA Fluoroscopy of Superior Vena Cava, Guidance (ICD-10-PCS; 2020-01-30)
DX: A41.9 Sepsis, unspecified organism (principal); L03.221 Cellulitis of neck; E87.1 Hypo-osmolality and hyponatremia; I50.22 Chronic systolic (congestive) heart failure; I82.290 Acute embolism and thrombosis of other thoracic veins; I82.C11 Acute embolism and thrombosis of right internal jugular vein; I25.5 Ischemic cardiomyopathy; G47.33 Obstructive sleep apnea (adult) (pediatric); K21.9 Gastro-esophageal reflux disease without esophagitis; E03.9 Hypothyroidism, unspecified; E78.5 Hyperlipidemia, unspecified; I80.8 Phlebitis and thrombophlebitis of other sites; B18.2 Chronic viral hepatitis C; I48.91 Unspecified atrial fibrillation; K04.7 Periapical abscess without sinus; I11.0 Hypertensive heart disease with heart failure; F19.10 Other psychoactive substance abuse, uncomplicated; Z53.29 Procedure and treatment not carried out because of patient's decision for other reasons; I50.9 Heart failure, unspecified; F17.200 Nicotine dependence, unspecified, uncomplicated; Z79.899 Other long term (current) drug therapy; Z82.49 Family history of ischemic heart disease and other diseases of the circulatory system; Z56.0 Unemployment, unspecified; Z79.01 Long term (current) use of anticoagulants; Z86.79 Personal history of other diseases of the circulatory system
CPT/HCPCS: 36415; 36573; 70100; 70491; 71045; 71275; 80048; 80053; 80074; 80162; 80202; 80307; 83605; 83880; 84443; 84484; 85025; 85520; 85651; 86140; 87040; 87081; 87521; 87806; 93005; 93306; 99285; G0378; J0295; J1644; J2543; J3370; Q9967; C1751; G0475; J7030; J7040

== ENCOUNTER 2020-09-27 16:36 | Emergency (ER) | payer MEDICAID ==
[~2020-09-27] VITALS: Ht 182.9 cm; Wt 115.6 kg
[~2020-09-27 16:36] MED LIST changes: -ASPI-515 PO; +ASPI-963 PO
[2020-09-27] MEDS ORDERED: ASPIRIN 81 MG TABLET CHEW ONE (17:17)
--- NOTE | 2020-09-27 17:26 | NUR ---
PIV PLACEMENT ATTEMPTED X2 WITHOUT SUCCESS. LAB AT BEDSIDE FOR BLOOD DRAW. ERPA NOTIFIED.
[2020-09-27] MEDS ORDERED: ASPIRIN 81 MG TABLET CHEW PO ONE (17:30)
[2020-09-27] MEDS ORDERED: SODIUM CHLORIDE FLUSH 10ML SYR IVF ONE (17:30)
[2020-09-27 17:42] LABS: BASOPHILS % (AUTO) 1 % (0-1); EOSINOPHILS % (AUTO) 2 % (1-7); LYMPHOCYTES % (AUTO) 25 % (22-44); MEAN CORPUSCULAR HEMOGLOBIN 33.1 pg (27.5-34.5); MEAN CORPUSCULAR HGB CONC 34.2 g/dL (33.2-36.2); MEAN PLATELET VOLUME 9.1 fL (7.4-10.4); MONOCYTES % (AUTO) 5 % (2-9); NEUTROPHILS % (AUTO) 68 % (42-75); PLATELET COUNT 222 x10^3/uL (130-400); RED BLOOD COUNT 4.47 x10^6/uL (4.38-5.82)
[2020-09-27 17:43] LABS: MD NO
[2020-09-27 17:51] LABS: ALANINE AMINOTRANSFERASE 43 U/L (12-78); ALBUMIN 4.4 g/dL (3.4-5.0); ANION GAP 5 mmol/L (5-15); CALCIUM 9.4 mg/dL (8.5-10.1); CHLORIDE 105 mmol/L (98-107); CREATININE 2.06 mg/dL (0.7-1.3)
[2020-09-27 17:55] LABS: ALKALINE PHOSPHATASE 79 U/L (45-117); BILIRUBIN,TOTAL 0.6 mg/dL (0.2-1.0); FREE T4 (FREE THYROXINE) 0.15 ng/dL (0.76-1.46); TOTAL PROTEIN 8.2 g/dL (6.4-8.2); TROPONIN I < 0.015 ng/mL (0.000-0.045)
--- NOTE | 2020-09-27 18:23 | NUR ---
ALL RESULTS ARE BACK AT THIS TIME. CHART UP FOR RECHECK.
[2020-09-27 19:16] VITALS: BP 134/99
--- NOTE | 2020-09-27 19:16 | NUR ---
BREAK RN: PT RESTING IN ROOM. NO ACUTE DISTRESS NOTED. VS STABLE. CALL LIGHT IN PLACE. WILL CONTINUE TO MONITOR WHILE PRIMARY RN IS ON BREAK
--- NOTE | 2020-09-27 19:50 | NUR ---
REPORT GIVEN TO AC WEBB
== END 2020-09-27 21:07 | disposition home or self-care (01) ==
LOC: ED 21:00
DX: R06.00 Dyspnea, unspecified (principal); R53.1 Weakness; E03.9 Hypothyroidism, unspecified; Z72.9 Problem related to lifestyle, unspecified; E03.4 Atrophy of thyroid (acquired)
CPT/HCPCS: 36415; 71045; 80053; 83880; 84439; 84443; 84484; 85025; 93005; 99285